=== PATIENT | male | born 1955 ===

== ENCOUNTER 2023-09-18 05:26 | Inpatient (IN) | payer OTHER, SELFPAY ==
[2023-09-17 20:40] VITALS: BP 124/60
[2023-09-17] MEDS: ZOFRAN 4 MG IV (20:56)
[2023-09-17 20:59] LABS: % Basophils 0.4 % (0-2); % Eosinophils 0.6 % (0-6); % Immature Granulocytes 0.5 % (0-0.5); % Lymphocytes 54.9 % (20.5-51.1); % Monocytes 5.1 % (1.7-9.3); % Neutrophils 38.5 % (42.2-75.2); Absolute Eosinophils 0.1 10^3/uL (0-0.7); Absolute Lymphocytes 4.7 10^3/uL (1.2-3.4); Absolute Monocytes 0.4 10^3/uL (0.1-0.6); Absolute Neutrophils 3.3 10^3/uL (1.4-6.5); Hematocrit 32.6 % (39.0-52.0); Hemoglobin 11.7 g/dL (13.0-18.0); Mean Corp Hgb Conc. 35.9 g/dL (33.0-37.0); Mean Corpuscular Hgb 31.2 pg (27.0-31.0); Mean Corpuscular Volume 86.9 fL (80.0-94.0); Mean Platelet Volume 9.5 fL (7.4-10.4); Nucleated Red Blood Cells % 0 % (-); Platelet Count 188 10^3/uL (130-400); Red Blood Cell Count 3.75 10^6/uL (4.70-6.10); Red Cell Dist. Width 12.7 % (11.5-14.5); White Blood Cell Count 8.5 10^3/uL (4.8-10.8)
[2023-09-17] MEDS: ATIVAN 0.5 MG IV (21:03)
[2023-09-17 21:10] LABS: APTT 25.4 Sec (23.4-35.0); INR 0.95; PT 12.7 Sec (11.4-14.6)
--- NOTE | 2023-09-17 21:12 | ED.GENMED ---
History of Present Illness
<Yousif Saavedra MD - Last Filed: 09/18/23 01:14>
General
Chief Complaint: Dizziness
Source: patient and ambulance crew
Exam Limitations: clinical condition
Time Seen by Provider: 09/17/23 20:49
Nursing documentation reviewed up to this point in time: agreed with
History of Present Illness
History of Present Illness:
68-year-old male with a reported medical history of GERD and hyperlipidemia who presents via EMS apparently from his place employment where his found him down on the ground confused complaining of dizziness with nausea and vomiting. EMS was
called at around 6:30 PM. According to the patient he says that he started to have rather acute onset of symptoms at 1:30 PM�he appears quite uncomfortable and is somewhat limited as a historian as he is frequently vomiting and groaning due to
discomfort. He says the primary source of his discomfort is severe dizziness and nausea although he also complains of feeling short of breath. He says that his symptoms started this afternoon and have been constant and worsening. Although he has
had dizziness and nausea/vomiting he denies any abdominal pain (contrary to what was written in triage note). He denies any chest pain to me. He says that he had similar symptoms in the past�he says he was seen at [facility] for vertigo. He says
that today's episode is different because in addition to the above symptoms he also feels like he is having tingling and weakness in his extremities particularly in his arms.
Review of Systems
<Yousif Saavedra MD - Last Filed: 09/18/23 01:14>
Review of Systems
All Other Systems: ROS reviewed and negative except as documented in HPI and ROS
Respiratory: Reports trouble breathing; Denies cough
Cardiac: Denies chest pain or palpitations
ABD/GI: Reports nausea and vomiting; Denies abdominal pain
: Denies flank pain
Musculoskeletal: Denies neck pain or back pain
Neurological: Reports dizzy, weakness and numbness; Denies headache
Phy Exam
<Yousif Saavedra MD - Last Filed: 09/18/23 01:14>
Physical Exam
Physical Exam:
General: Patient is laying in bed groaning and appears in acute distress
Head: Normocephalic, atraumatic
Eyes: Conjunctiva normal, pupils equal round and reactive to light bilaterally, extraocular movements are intact without nystagmus
Throat: Airway intact, handling secretions
Neck: Trachea midline, supple without meningismus
Lungs: Clear to auscultation bilaterally, no wheezing, rales, rhonchi; he does have mild tachypnea but no increased work of breathing
Heart: Regular rate and rhythm, no murmurs, gallops, or rubs
Abd: Soft, non distended, nontender
Neuro: Patient appears to have a slight downturn of the left corner of his mouth, no other cranial nerve deficits noted; he has 4/5 strength in all extremities and strength is symmetric; he has subjective diminished sensation in all extremities and
it appears symmetric
Skin: no rash
Extremities: No edema in extremities, equal pulses in all extremities�specifically has bilateral radial pulses, femoral pulses and palpable distal DP pulses
Scores
<Yousif Saavedra MD - Last Filed: 09/18/23 01:14>
NIH Stroke Score
Level of Consciousness: 1 - Arousable
LOC Questions: 0-Answers both correctly
LOC Commands: 0-Performs both correctly
Best Horizontal Gaze: 0-Normal
Visual Baker: 0=Normal, no visual loss
Facial Palsy: 1=Minor paralysis
Motor - Right Arm: 2=Partial vs. gravity
Motor - Left Arm: 2=Partial vs. gravity
Motor - Right Le-Partial vs. gravity
Motor - Left Le-Partial vs. gravity
Limb Ataxia: 0-Absent
Sensation: 1-Mild loss
Best Language: 0-No aphasia
Dysarthria: 0-Normal
Extinction and Inattention: 0-No abnormality
Total Score:: 11
Thrombolytic Contraindication
Inclusion and Exclusion criteria reviewed: Yes
Reasons for NON-Tx with Thrombolytics ABSOLUTE Exclusions: Greater than 4.5 hrs from onset of sxs
Heart Failure Risk
Heart Failure Risk Score: Not Applicable
Heart Score for Chest Pain Patients
STEMI patient?: Not applicable
Withdrawal Assessment of Alcohol
Withdrawal Assessment Completed?: Not applicable
<Erick Mei DO - Last Filed: 09/18/23 02:16>
NIH Stroke Score
Total Score:: 11
Course
<Yousif Saavedra MD - Last Filed: 09/18/23 01:14>
Orders/Labs/Results
Orders:
Orders
09/17/23 20:48
Electrocardiogram (*1) Urgent
Reason for Study: Vertigo / Dizzy
EKG- Treatment ONCE
09/17/23 20:53
Complete Blood Count/With Diff Urgent
Comprehensive Metabolic Panel Urgent
Lipase Urgent
PTT Urgent
Prothrombin Time Urgent
Troponin I Urgent
09/17/23 20:55
Ondansetron Injectable [Zofran] 4 mg IV NOW STA
09/17/23 20:58
CR Chest Portable - 1 View Urgent
Comment:
Reason For Exam: SOB
Reason Study Needs to be Portable: Unable to Transport
09/17/23 21:03
Lorazepam [Ativan] 0.5 mg IV NOW STA
09/17/23 21:06
CT Head W/o Cont STROKE ALERT Urgent
Reason For Exam: dizziness
09/17/23 21:09
CT Head/Neck Ang STROKE ALERT Urgent
Comment:
Reason For Exam: arm weakness (b/l), dizziness, facial droop
09/17/23 21:11
0.9% Sodium Chloride 500 ml [Nss] 500 ml IV BOLUS
09/17/23 22:17
Potassium Chloride [KCl] 40 meq Dextrose 5%/Water 250 ml [D5w] 250 ml IV NOW
09/18/23 01:40
Troponin I Urgent
Abnormal Lab Results
09/17/23
20:53
RBC 3.75 L 10^6/uL
(4.70-6.10)
Hgb 11.7 L g/dL
(13.0-18.0)
Hct 32.6 L %
(39.0-52.0)
MCH 31.2 H pg
(27.0-31.0)
Absolute Lymphs (auto) 4.7 H 10^3/uL
(1.2-3.4)
Neutrophils % 38.5 L %
(42.2-75.2)
Lymphocytes % 54.9 H %
(20.5-51.1)
Sodium 134 L mmol/L
(135-145)
Potassium 2.9 L mmol/L
(3.5-5.1)
Carbon Dioxide 16 L mmol/L
(22-30)
BUN 26 H mg/dl
(9-20)
Glucose 186 H mg/dl
(70-99)
09/17/23 20:53
09/17/23 20:53
Vital Signs
Initial and Last Documented VS:
Initial Vital Signs
Temp Pulse Resp BP Pulse Ox
97.3 F 67 20 124/60 100
09/17/23 20:40 09/17/23 20:40 09/17/23 20:40 09/17/23 20:40 09/17/23 20:40
Last Documented Vital Signs
Temp Pulse Resp BP Pulse Ox
97.3 F 52 15 114/58 96
09/17/23 20:40 09/18/23 01:15 09/18/23 01:15 09/18/23 01:00 09/18/23 01:15
<Erick Mei, DO - Last Filed: 09/18/23 02:16>
Orders/Labs/Results
Orders:
Orders
09/17/23 20:48
Electrocardiogram (*1) Urgent
Reason for Study: Vertigo / Dizzy
EKG- Treatment ONCE
09/17/23 20:53
Complete Blood Count/With Diff Urgent
Comprehensive Metabolic Panel Urgent
Lipase Urgent
PTT Urgent
Prothrombin Time Urgent
Troponin I Urgent
09/17/23 20:55
Ondansetron Injectable [Zofran] 4 mg IV NOW STA
09/17/23 20:58
CR Chest Portable - 1 View Urgent
Comment:
Reason For Exam: SOB
Reason Study Needs to be Portable: Unable to Transport
09/17/23 21:03
Lorazepam [Ativan] 0.5 mg IV NOW STA
09/17/23 21:06
CT Head W/o Cont STROKE ALERT Urgent
Reason For Exam: dizziness
09/17/23 21:09
CT Head/Neck Ang STROKE ALERT Urgent
Comment:
Reason For Exam: arm weakness (b/l), dizziness, facial droop
09/17/23 21:11
0.9% Sodium Chloride 500 ml [Nss] 500 ml IV BOLUS
09/17/23 22:17
Potassium Chloride [KCl] 40 meq Dextrose 5%/Water 250 ml [D5w] 250 ml IV NOW
09/18/23 01:40
Troponin I Urgent
Abnormal Lab Results
09/17/23
20:53
RBC 3.75 L 10^6/uL
(4.70-6.10)
Hgb 11.7 L g/dL
(13.0-18.0)
Hct 32.6 L %
(39.0-52.0)
MCH 31.2 H pg
(27.0-31.0)
Absolute Lymphs (auto) 4.7 H 10^3/uL
(1.2-3.4)
Neutrophils % 38.5 L %
(42.2-75.2)
Lymphocytes % 54.9 H %
(20.5-51.1)
Sodium 134 L mmol/L
(135-145)
Potassium 2.9 L mmol/L
(3.5-5.1)
Carbon Dioxide 16 L mmol/L
(22-30)
BUN 26 H mg/dl
(9-20)
Glucose 186 H mg/dl
(70-99)
09/17/23 20:53
09/17/23 20:53
Vital Signs
Initial and Last Documented VS:
Initial Vital Signs
Temp Pulse Resp BP Pulse Ox
97.3 F 67 20 124/60 100
09/17/23 20:40 09/17/23 20:40 09/17/23 20:40 09/17/23 20:40 09/17/23 20:40
Last Documented Vital Signs
Temp Pulse Resp BP Pulse Ox
97.3 F 52 15 114/58 96
09/17/23 20:40 09/18/23 01:15 09/18/23 01:15 09/18/23 01:00 09/18/23 01:15
<Yousif Saavedra MD - Last Filed: 09/18/23 01:14>
MDM/Problems Addressed
Differential Diagnosis Includes:
Acute stroke, aortic dissection, brain hemorrhage, severe vertigo, acute coronary event
MDM/Problems Addressed:
68-year-old male presents to the emergency room via EMS�he appears quite uncomfortable and in distress, groaning, tachypneic, vomiting. His primary complaints are nausea with vomiting, severe dizziness, shortness of breath, weakness and numbness in
his extremities. He says that he has a history of vertigo in the past with similar symptoms but that today he is having weakness and numbness in his extremities which is unusual. His vital signs are all within normal limits. Physical exam as
above. Stat EKG shows no STEMI. Stat portable chest x-ray shows no acute disease on my independent review. We placed an IV and lab work was sent off including a CBC and a CMP, troponin, lipase, coags. Stroke alert was called and will send him
for a CT of the head as well as a CTA of the head and neck. Treated symptomatically and will provide some fluids. Monitor closely.
Labs reviewed: CBC shows marginal anemia otherwise unremarkable, CMP shows significant hypokalemia at 2.9 in the setting of recent heavy vomiting�will replete IV. Troponin undetectable. Lipase normal. CT head was negative for any acute pathology.
CTA head and neck also negative for any acute pathology. Clinical reassessment patient improved with symptomatic treatment but still feeling some dizziness and mild nausea. He appears much more comfortable now. Case was discussed with
neurology�even in case of stroke would not be a TNK candidate. There is at least some concern for posterior circulation stroke given his active dizziness with no nystagmus and associated weakness/paresthesias. Neurologist recommended admission for
symptom control and MR to rule out stroke.
I had a long discussion with the patient as well as his and a close family friend to discuss his symptoms, his lab work, his imaging studies, and concerns about potential stroke. I explained that both myself and specialist have recommended
admission for MR to rule out stroke. Furthermore I explained that I am concerned just on the basis of his continued symptoms alone that should he have continued vomiting he could have worsening hypokalemia and complications as a result of this. I
strongly recommended admission to the hospital. Patient and his are very hesitant to be admitted to the hospital because they do not think that he needs any further testing. Although he does not feel that his symptoms have resolved and is not
yet able to take p.o. he does say that have greatly improved and he thinks that he will be okay to go home. I strongly advised against this and after long discussion he would like to see how he feels after further ED observation and potassium
repletion. Current plan per patient preference is to discuss admission versus signing out AGAINST MEDICAL ADVICE after further observation and potassium repletion.
Chronic conditions affecting care:
Hyperlipidemia�higher risk for stroke
<Yousif Saavedra MD - Last Filed: 09/18/23 01:14>
*Radiology
Radiology exam reviewed: preliminary read by ED provider and radiology read reviewed
*Pulse Oximetry
Patient hypoxic: no
*Critical Care Note
Total Time (30-74mins, 75-104mins- exclusive of procedures): 35
comment:
Critical care statement: A total of 35 minutes of critical care time was provided for this patient. This includes management of unstable vital signs, evaluation of the patient at bedside, frequent reassessment, discussion with
consultants/hospitalist, and review of pertinent medical records. This time was separate from time utilized to perform any aforementioned documented procedures
Data Reviewed
Source: patient and ambulance crew
<Yousif Saavedra MD - Last Filed: 09/18/23 01:14>
Patient Management
Discussion with other providers: Tip Mender (Discussed with neurology)
<Erick Mei DO - Last Filed: 09/18/23 02:16>
Update Note
Update Note:
09/18/2023 0214 AM: returned and discussed disposition with his . At this point they wish to be admitted for increased dizziness, and hypokalemia
ED Attending Note
<Yousif Saavedra MD - Last Filed: 09/18/23 01:14>
-
Portions of this chart may have been created with voice recognition software.� Occasional wrong word or��sound alike� substitutions may have occurred due to the inherent limitations of voice recognition software.
Discharge Plan
Departure
Patient Disposition: Admit
Date of Disposition: 09/18/23
Time of Disposition: 02:15
Admit to: Telemetry
Presentation/result/management discussed w/ accepting MD/DO: Hospitalist
Discharge Problem:
Acute hypokalemia, Nausea & vomiting, Dizziness
Prescriptions:
No Action
omeprazole 40 mg capsule,delayed release(DR/EC)
40 mg PO DAILY
aspirin 81 mg Tablet,Delayed Release (Dr/Ec)
81 mg PO DAILY
simvastatin 20 mg tablet
20 mg PO DAILY
methylprednisolone [Medrol (Joel)] 4 mg Tablets,Dose Pack
4 mg PO PER PKG DIR
amoxicillin-pot clavulanate 875-125 mg tablet
1 tab PO BID
Referrals:
Gabriela Cam MD [Family Provider] -
Interventions
Interventions:
*Risk Screen - Suicide Last Done: 09/17/23 20:45
*General Assessment Last Done: 09/17/23 20:45
*Neglect/Abuse Screening Last Done: 09/17/23 20:45
ED- Fall Risk Assessment Last Done: 09/17/23 20:45
*ED COVID-19 Vaccine History Last Done: 09/17/23 20:45
ED- Cardiac Assessment Last Done: 09/17/23 20:45
ED- Neurological Assessment Last Done: 09/17/23 20:45
Discharge Date and Time
Print Language: SOUTH SUDANESE
[2023-09-17 21:26] LABS: ALT (SGPT) 29 U/L (0-50); AST (SGOT) 31 U/L (17-59); Albumin 4.3 g/dl (3.5-5.0); Alkaline Phosphatase 79 U/L (38-126); Blood Urea Nitrogen 26 mg/dl (9-20); Calcium 9.4 mg/dl (8.4-10.2); Carbon Dioxide 16 mmol/L (22-30); Chloride 104 mmol/L (98-107); Glucose 186 mg/dl (70-99); Lipase 161 U/L (23-300); Potassium 2.9 mmol/L (3.5-5.1); Sodium 134 mmol/L (135-145); Total Bilirubin 1.2 mg/dl (0.2-1.3); Total Protein 6.6 g/dl (6.3-8.2); Troponin I < 0.012 ng/ml; eGFR > 60.00
[2023-09-17] MEDS: NSS 500 IV (21:27)
[2023-09-17 21:47] VITALS: BP 160/75
[2023-09-17 22:00] VITALS: BP 161/70
[2023-09-17 22:30] VITALS: BP 147/61
[2023-09-17] MEDS: KCL 270 MEQ IV (22:45)
[2023-09-17 23:00] VITALS: BP 131/82
[2023-09-17 23:30] VITALS: BP 137/61
[2023-09-18] VITALS (19 sets, daily range): BP systolic 96–146; BP diastolic 49–68; PULSE 51–60; O2SAT 99; BMI 21.0
[2023-09-18 02:48] LABS: Troponin I < 0.012 ng/ml
--- NOTE | 2023-09-18 05:05 | HPS.HSE ---
Family Physician
-
Family Physician: Gabriela Cam
Chief Complaint
-
Syncope
History of Present Illness
Patient is a 68y M with PMH significant for dyslipidemia who presents to ED complaining of syncopal episode. History obtained via use of Language Line bar back. Patient states that he was working in the heat today when he began to feel
lightheaded and nauseated. he had an episode of emesis followed by LOC / syncope. He states that his body felt 'stiff' following this and he continued to feel nauseated. He presented to the ED for further evaluation. He denies any prior history
of similar symptoms. He denies any focal numbness or weakness - other than tingling / numbness that he chronically has in his legs.
At the time of my examination in the ED, patient is resting comfortably and has no complaints.
Medical History
Past Medical History
Past Medical History: Reports Other
Additional Past Medical History:
Dyslipidemia
Past Surgical History: Reports None
Social History
Tobacco: Non-smoker
Alcohol: None
Drug: None
Family History
Family History: Not pertinent
Allergies / Home Medications
Allergies reflects when Allergies were last updated in [employer].
Home Medications with original date entered in [employer]
Allergy/Medication List:
Allergies
Allergy/AdvReac Type Severity Reaction Status Date / Time
No Known Allergies Allergy Verified 09/17/23 21:25
Home Medications
aspirin 81 mg tablet,delayed release 81 mg PO DAILY 09/17/23
omeprazole 40 mg capsule,delayed release 40 mg PO DAILY 09/17/23
simvastatin 20 mg tablet 20 mg PO DAILY 09/17/23
Review of Systems
-
History Source: Patient
A 12 point ROS was completed and negative except as noted: Yes
Constitutional: Reports Fatigue; Denies Fever or Chills
EENT: Denies Sore Throat
Respiratory: Denies Cough or Trouble Breathing
Cardiac: Reports Syncope; Denies Chest Pain or Palpitations
Abdomen/GI: Reports Nausea, Vomiting and Diarrhea; Denies Abdominal Pain, Bloody Stools, Black Stools or Anorexia
: Denies Dysuria, Frequency or Flank Pain
Musculoskeletal: Reports Muscle Stiffness; Denies Joint Pain or Edema
Neurological: Reports Dizzy; Denies Headache
Psych: Denies Depression or Anxiety
Physical Exam
Vital Signs
Vital Signs
Temp Pulse Resp BP Pulse Ox
97.3 F 46 14 99/55 96
09/17/23 20:40 09/18/23 04:45 09/18/23 04:45 09/18/23 04:30 09/18/23 04:45
Physical Exam
General: Other (68y M in no acute distress.)
HEENT: Other (Dry MM. Neck supple.)
Respiratory: Clear; No Wheezes, Rales or Rhonchi
Cardiac: S1/S2 and Regular Rhythm; No Murmur
GI: Soft, Non Tender, Non Distended and Normal Bowel Sounds
Musculoskeletal: No Clubbing, No Cyanosis and No Edema
Neuro: AO x 3 and Nonfocal/grossly intact
Laboratory Results
-
09/17/23 20:53
09/17/23 20:53
Laboratory Results
PT 12.7 Sec (11.4-14.6) 09/17/23 20:53
INR 0.95 09/17/23 20:53
APTT 25.4 Sec (23.4-35.0) 09/17/23 20:53
Total Bilirubin 1.2 mg/dl (0.2-1.3) 09/17/23 20:53
AST 31 U/L (17-59) 09/17/23 20:53
ALT 29 U/L (0-50) 09/17/23 20:53
Alkaline Phosphatase 79 U/L (38-126) 09/17/23 20:53
Troponin I < 0.012 ng/ml 09/18/23 02:18
Lipase 161 U/L (23-300) 09/17/23 20:53
Impression/Plan
-
A/P: Patient is a 68y M with PMH significant for dyslipidemia who presents to ED following an syncopal episode.
Syncope
- Admit for further evaluation and treatment.
- Description of symptoms seems c/w syncopal episode and not primary neurologic event.
- Follow neuro exam for any focal symptoms / findings.
- CT imaging in the ED was unremarkable.
- Would not pursue further imaging, etc unless new symptoms develop.
- Monitor on tele for evidence of arrhythmia.
- Echo.
- Replace potassium as noted below / IVF support.
- Follow for any new / recurrent symptoms.
Hypokalemia
- Significant hypokalemia with K = 2.9.
- Check Mg and replace if needed - note patient on chronic PPI therapy.
- Received IV rider in the ED and will give additional dose PO now.
- Follow labs / lytes and provide additional replacement as needed.
DVT Prophylaxis: SCDs
Code Status: Full
[2023-09-18] MEDS: KCL 40 MEQ PO (05:27)
--- NOTE | 2023-09-18 06:30 | PTCARENOTE ---
Received pt from ED drowsy-obtunded. Pt Bengali speaking only. Per electrician wiring: pt oriented to self, place and time with clear speech. Pt following simple commands. No drift or droop noted. +PERRLA 3mm brisk +EOMS. PT requiring consistent verbal
stimulation to answer questions and follow commands. Pt denies pain. NIH was attempted several times via Language Line, however patient did not follow all assessment questions.
[2023-09-18] MEDS: LR 1000 IV ×2 (07:32→13:58)
[2023-09-18] MEDS: ASPIR LOW (ENTERIC COATED) 81 MG PO (07:58)
[2023-09-18] MEDS: LIPITOR 10 MG PO (07:58)
[2023-09-18 08:51] LABS: TSH Reflex To Free T4 0.61 uIU/ml (0.47-4.68)
--- NOTE | 2023-09-18 09:58 | PTCARENOTE ---
Pt refusing Tramadol ordered for pain; per visitor in room pt does not want; has no pain. Does not speak Danish; will not cooperate with use of video translation device. Dr. Cabral notified.
--- NOTE | 2023-09-18 10:46 | PTCARENOTE ---
Unable to complete admission assessment at this time; pt does not speak Maori, will not attempt to use language line monitor/does not attempt to communicate with staff. Unable to complete ortho VS- pt does not understand; will not stand.
--- NOTE | 2023-09-18 14:29 | W.PN.HOSP.TC ---
Addendum entered and electronically signed by Michael Cabral MD 09/18/23 16:33:
I saw and evaluated the patient. I reviewed the resident�s note and agree with findings and plan as documented in the resident�s note.
Pt's human resources officer who Knows the patient well and was able to give me story. Patient speaks of Tajik.
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 He was working on a machine which was not functioning properly. He apparently started to notice leg cramps but continue to work and at 1
point he felt he was d lightheaded so he tried to open the door and come out off his laundromat and he thought he was going to pass out so the human resources officer advised his spouse to put him on the floor and when he came in to check on him he was apparently on
the floor, might of passed out. He started to feel nauseous before passing out and in fact threw up once before passing out. He also threw up once when the EMS came. He is normally constipated.
Since in the hospital no further nausea vomiting. Tolerating diet. No abdominal pain. Abdomen is benign on clinical exam.
No prior syncopes. EKG shows sinus rhythm with no acute ST-T changes. Mildly bradycardic on telemetry but no pauses. No tachyarrhythmias. No bradycardia arrhythmias. He had an echo a month ago which was ok.
He still has mild cramp in the left leg today. Hypokalemia noted. Magnesium is okay. He got the potassium supplementation. Repeat BMP and replete potassium as needed.
Clinical scenario is of heat cramps and possibly heat syncope. Patient advised to keep himself hydrated .
Next time When he starts to feel cramps, he should stop working and hydrate himself and not work till he feels well again.
Original Note:
Documented by User: Luz North MD, Resident 09/18/23 15:16
Today's Communication/Plan
-
Continue to monitor vital signs, BMP--consider neurology consult-- Consider Adrenal workup
Assessment / Plan
Assessment / Plan
Patient is a 68y M with PMH significant for dyslipidemia who presents to ED following an syncopal episode at work. Patient reports 2 episodes of vomiting after the syncope while he was being carried to the hospital. For the past month, he has
been drinking less than 1 bottle of water daily because it makes him nauseous. Does not have any trouble swallowing/eating food. He mentions he has lost 3 pounds in the last month because of excessive sweating at his workplace (he works at a
[employer]). He was treated for a rash on his left cheek 2 weeks ago in [facility] (still faintly visible). He does not note any chest pain, dyspnea, diarrhea, or changes in frequency of urination.
Syncope
- Neuro exam does not suggest any focal symptoms / findings.
- CT and CTA imaging in the ED was unremarkable.
- apprec OT PT evaluation--no signs of orthostatic hypotension, Steady gait
- Monitor for evidence of arrhythmia.
- EKG: SINUS BRADYCARDIA, INCOMPLETE RIGHT BUNDLE BRANCH BLOCK-- Consider Echo.
- Consider abdominopelvic MRI
- IVF support.
-TSH normal
- Consider medsitter
Hypokalemia
- Significant hypokalemia with K = 2.9--Replete potassium
- Check Mg and replace if needed - note patient on chronic PPI therapy.
- Received IV rider in the ED
- Monitor BMP, V/S.
DVT Prophylaxis: SCDs
Code Status: Full
Anticipated Discharge: 24 - 48 hours
Subjective/Interval History
-
Date of Service: September 18, 2023
Patient has very limited Turkmen speaking skills. He appears to be well and not in distress. Does not feel dizzy a at this moment. However he still feels nauseous. [employer]ikh[employer] vp packaging and son are at bedside to translate. Complains of left leg cramps.
Objective Data
-
Vital Signs:
Vital Signs
Temp Pulse Resp BP Pulse Ox
98.5 F 49 18 146/62 96
09/18/23 11:35 09/18/23 11:35 09/18/23 11:35 09/18/23 11:35 09/18/23 11:35
Review of Systems
-
History Source: Patient and Other
All other systems: Reviewed and negative
Constitutional: Reports Weakness
EENT: Reports No Symptoms Reported
Musculoskeletal: Reports Muscle Weakness
Skin: Reports Rash (Patient reports a rash on his left cheek from 2 weeks ago, was evaluated in [place].)
Physical Exam
-
General: Well Developed, No Apparent Distress and Comfortable
HEENT: Normocephalic and Moist Mucous Membranes
Respiratory: Clear to Auscultation
Cardiac: Regular Rhythm, S1/S2 and Bradycardic
GI: Soft, Nontender, Nondistended and Normal Bowel Sounds
Genito-urinary: No Costovertebral Tender
Musculoskeletal: No Clubbing, No Cyanosis, No Edema, Normal Gait & Station and Other (Muscle strength 4+/ 5)
Skin: Rash (He has a faint red rash on the left side of his face)
Neuro: Awake, Alert, Oriented and AO x 3
Hematologic / Lymphatic: No Lymphadenopathy
Psych: Calm
Data Reviewed
-
Total Time Spent with Patient (in minutes): 30

Documented by User: Michael Cabral MD 09/18/23 16:28
Assessment / Plan
Assessment / Plan
Patient is a 68y M with PMH significant for dyslipidemia who presents to ED following an syncopal episode at work. Patient reports 2 episodes of vomiting after the syncope while he was being carried to the hospital. For the past month, he has
been drinking less than 1 bottle of water daily because it makes him nauseous. Does not have any trouble swallowing/eating food. He mentions he has lost 3 pounds in the last month because of excessive sweating at his workplace (he works at a
[employer]). He was treated for a rash on his left cheek 2 weeks ago in [facility] (still faintly visible). He does not note any chest pain, dyspnea, diarrhea, or changes in frequency of urination.
Syncope
- Neuro exam does not suggest any focal symptoms / findings.
- CT and CTA imaging in the ED was unremarkable.
- apprec OT PT evaluation--no signs of orthostatic hypotension, Steady gait
- Monitor for evidence of arrhythmia.
- EKG: SINUS BRADYCARDIA, INCOMPLETE RIGHT BUNDLE BRANCH BLOCK-
- -TSH normal
Hypokalemia
- Significant hypokalemia with K = 2.9--Replete potassium
- Check Mg and replace if needed - note patient on chronic PPI therapy.
DVT Prophylaxis: SCDs
Code Status: Full
--- NOTE | 2023-09-18 16:17 | CM ---
Addendum entered by Ling Leigh 09/18/23 16:46:
explained imm letter to eh final armature tester and he signed imm letter in patient's behalf.he is stable to dc home with no needs.
Original Note:
met with patient who is pashto and does not understand turkmen and several muslim members.patient lives with his and daughter el in house with no steps to enter.his bed and bath is on the second level,he amb i and was I with his adl's.his
pcp is dr chance and he uses [facility] in [facility].he has never had a vn or been to [facility].
patient is adm after a syncopal event and n/v at work.he had an ekg with richard,on ivf.he was seen by therapy who recommend home.continue to monitor vs.Plan home with no needs when stable for dc.
--- NOTE | 2023-09-18 16:24 | W.DS.TRANS ---
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
-
Discharge Instructions:
Discharge Diagnosis/Procedures Heat cramps , syncope ? heat
Diet Regular
Activity As tolerated
Driving Restrictions As prior to admission
Bathing Restrictions None
Instructions:
Stand-Alone Forms:
Changes to Home Medications: No
Discharge Medications:
DC Medications w/original date entered in [facility]
aspirin 81 mg tablet,delayed release 81 mg PO DAILY 09/17/23
omeprazole 40 mg capsule,delayed release 40 mg PO DAILY 09/17/23
simvastatin 20 mg tablet 20 mg PO DAILY 09/17/23
Home Medication Changes
Pending Results: No
--- NOTE | 2023-09-18 16:31 | PTCARENOTE ---
Pt awake and alert, oriented x3 per visitors in room. HO; OOB in chair with assistance, ambulated in [place] with PT, federico well. Pt speaks Greek; will not use language line/video monitor.VSS. Telemetry:sinus richard. On room air- pulse ox 99%, no
SOB. Abd soft, rounded, currently non-tender; federico small amts reg diet. Voiding in urinal without difficulty. IVF's RL @ 125 ml/hr infusing via Lt foream site without sx of infiltration. Resting in bed at present. Will continue to monitor.
[2023-09-18 17:23] LABS: Blood Urea Nitrogen 12 mg/dl (9-20); Calcium 9.4 mg/dl (8.4-10.2); Carbon Dioxide 26 mmol/L (22-30); Chloride 108 mmol/L (98-107); Estimated Creatinine Clearance 98 ml/min; Glucose 124 mg/dl (70-99); Potassium 4.1 mmol/L (3.5-5.1); Sodium 140 mmol/L (135-145); eGFR > 60.00
--- NOTE | 2023-09-18 17:30 | W.DCSUMMARY ---
Discharge Summary
Discharge Data
Date of Admission: 09/18/23
Date of Discharge: 09/18/23
Total time spent discharging patient (in min): 20
-
Pending Results: No
Hospital Course
Patient is a 68yo male with PMH significant for dyslipidemia who presented to ED following a syncope episode at work. 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 He was working
on a machine which was not functioning properly. He apparently started to notice leg cramps but continued to work and at one point he felt he was lightheaded so he tried to open the door and come out off his laundromat and he thought he was going
to pass out so the pictures editor advised his spouse to put him on the floor and when he came in to check on him he was lying on the floor. He started to feel nauseous before passing out and threw up once before passing out. He also threw up once when the
EMS came. He did not give any history of prior syncopes.Patient was found to have acute hypokalemia upon evaluation in ED. Magnesium was okay. Patient was admitted.
Problem #1: Acute hypokalemia: He did not have any further nausea vomiting during hospitalization. He was able to tolerate diet and did not have any abdominal pain. EKG showed sinus rhythm with no acute ST-T changes. Mildly bradycardic on
telemetry but no pauses. No tachy- or bradycardia arrhythmias. He had an echo a month ago which was ok. Hypokalemia was resolved after being repleted with oral supplementation.
Problem #2: Heat cramps and possibly heat syncope: He continued to have some degree of mild cramp in the left leg but no further lightheadedness during his time in the hospital. Orthostatic hypotension not present. Patient was advised to keep
himself hydrated.
Patient is in good clinical condition and is stable for discharge.
Discharge Plan
-
Patient Disposition: Home (Routine Discharge)
Discharge Diagnosis/Procedures: Heat cramps , syncope ? heat
Diet: Regular
Activity: As tolerated
Driving Restrictions: As prior to admission
Bathing Restrictions: None
Activity Restrictions/Additional Instructions:
No medication changes are made on this admission ;pls touch base with your PCP if there are any discrepancy in the mediations.
Referrals:
Gabriela Cam MD [Family Provider] - in less than 1 week
Prescriptions:
Continued
omeprazole 40 mg capsule,delayed release(DR/EC)
40 mg PO DAILY
aspirin 81 mg Tablet,Delayed Release (Dr/Ec)
81 mg PO DAILY
simvastatin 20 mg tablet
20 mg PO DAILY
Discontinued
methylprednisolone [Medrol (Joel)] 4 mg Tablets,Dose Pack
4 mg PO PER PKG DIR
amoxicillin-pot clavulanate 875-125 mg tablet
1 tab PO BID
Discharge Orders:
Discharge Patient (As Directed); Ordered 09/18/23
Ordered By: Michael Cabral
Discharge Date and Time
Print Language: HAITIAN
--- NOTE | 2023-09-18 18:05 | PTCARENOTE ---
Repeat K+ 4.1; Dr. Cabral notified; pt for DC home.
== END 2023-09-18 18:58 | disposition home or self-care (01) | DRG 641 ==
LOC: 4 EAST ACU 05:26
PROVIDERS: ADMITTING PHYSICIAN Hospitalist; ATTENDING PHYSICIAN Internal Medicine; EMERGENCY PHYSICIAN Emergency Medicine; FAMILY PHYSICIAN Internal Medicine Geriatric Medicine
DX: E87.6 Hypokalemia (principal); T67.2XXA Heat cramp, initial encounter; X58.XXXA Exposure to other specified factors, initial encounter
CPT/HCPCS: 70450; 70496; 70498; 71045; 80048; 80053; 83690; 83735; 84443; 84484; 85025; 85610; 85730; 93005; 96361; 96365; 96366; 96375; 97163; 97167; 99291; Q9967